=== PATIENT | male | born 1990 | race American Indian/Alaskan Native ===

== ENCOUNTER 2018-03-23 21:13 | Emergency (ER) | payer OTHER ==
[2018-03-23 21:20] VITALS: BMI 27.1
[2018-03-23 21:24] VITALS: TEMP 98.1
[2018-03-23] MEDS ORDERED: Lidocaine 5% Patch TD STA (21:38)
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
[2018-03-23 23:17] VITALS: BP 135/67; PULSE 65; RESP 17; O2SAT 100
--- NOTE | 2018-03-24 08:43 | RAD ---
Date of service: 03/23/2018 PROCEDURE: Radiographs of the Lumbar Spine. HISTORY: pain COMPARISON: No prior. FINDINGS: BONES: Normal alignment. No listhesis. No fracture. DISC SPACES: Unremarkable. OTHER FINDINGS: None. IMPRESSION: Unremarkable radiographs of the lumbar spine.
--- NOTE | 2018-03-24 08:44 | RAD ---
Date of service: 03/23/2018 HISTORY: pain COMPARISON: No prior. FINDINGS: BONES: There is mild curvature of the upper thoracic spine convex to the right DISC SPACES: Normal. SOFT TISSUES: Normal. OTHER FINDINGS: None. IMPRESSION: No acute findings
== END 2018-03-23 23:16 | disposition home or self-care (01) ==
LOC: MERGE 21:13 → ED 21:13
DX: M54.5 Low back pain (principal); V89.2XXA Person injured in unspecified motor-vehicle accident, traffic, initial encounter
CPT/HCPCS: 72070; 72110; 96372; 99282; J1885